=== PATIENT | male | born 1935 | race Caucasian/White ===

== ENCOUNTER → 2020-08-22 | Outpatient (CLI) | payer MEDICARE ==
--- NOTE | 2020-08-22 12:46 | US ---
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 EXAM MEASUREMENTS: Liver Length: 15.9 cm Gallbladder Wall: 0.3 cm CBD: 0.3 cm Spleen: 10.0 cm Right Kidney: 9.9 x 5.3 x 5.2 cm Left Kidney: 9.5 x 4.6 x 5.5 cm Pancreas: Obscured by bowel gas Liver: Multiple hepatic cysts, largest measuring 2.9 x 1.9 x 2.3 cm. Mild intrahepatic biliary duct al dilatation. Gallbladder: Cholelithiasis. No gallbladder wall thickening or pericholecystic edema. [employer] reports negative sonographic Muñoz sign. CBD: Normal. Spleen: Normal. Right Kidney: Normal. Left Kidney: No hydronephrosis. Unilocular exophytic simple appearing cyst of the lower pole measuri ng 7.0 x 6.4 x 6.6 cm. Upper IVC: Normal. Abd Aorta: No abdominal aortic aneurysm. IMPRESSION: 1. Mild intrahepatic biliary ductal dilatation. No extrahepatic biliary ductal dilatation. Recommend follow-up with MRCP. 2. Cholelithiasis. No acute cholecystitis. 3. Simple unilocular left renal cyst measuring 7.0 cm.
== END | disposition home or self-care (01) ==
LOC: RADUSWWP 08:04
PROVIDERS: ATTEND Family Medicine
DX: K80.20 Calculus of gallbladder without cholecystitis without obstruction (principal); N28.1 Cyst of kidney, acquired; K83.8 Other specified diseases of biliary tract
CPT/HCPCS: 76700

== ENCOUNTER → 2020-09-17 | Outpatient (CLI) | payer MEDICARE ==
--- NOTE | 2020-09-17 19:09 | MR ---
EXAMINATION TYPE: MR MRCP DATE OF EXAM: 09/17/2020 COMPARISON: Ultrasound abdomen August 22, 2020. HISTORY: Ductal dilation, abnormal ultrasound. Standard multiplanar, multisequence MRI departmental protocol Multiplanar, multisequence images of the abdomen were acquired. 2-D and 3-D postprocessing performed on MRI scanner. FINDINGS: Liver/gallbladder/pancreas/biliary system: Liver is overall normal in size. Corresponding to CT there are thin-walled cysts of varying size and shape scattered throughout the liver. No significant signa l dropout. Gallbladder shows no intraluminal gallstones. No abnormal wall thickening or surrounding f luid is present. Pancreas shows mild generalized fat replaced atrophy. There is no concerning solid o r cystic mass. MRCP images show no pancreatic ductal dilatation. There is no suspicious intrahepatic or extrahepatic biliary dilatation Other: Lung bases are clear. The spleen and both adrenal glands are within normal limits. There is th in walled 8.0 x 7.2 x 7.5 cm exophytic cyst lower pole left kidney redemonstrated. Smaller subcentime ter thin-walled cyst medially upper pole left kidney coronal image 32 incidentally noted. No hydronep hrosis. No suspicious small large bowel dilatation. Occasional left-sided colonic diverticula. Slight dextroconvex scoliosis centered at L2 level in the lumbar spine with [id number] multilevel spu rring and disc space narrowing. IMPRESSION: No worrisome intrahepatic or extrahepatic biliary dilatation. Several scattered thin-walled cysts thr oughout the liver correlate with ultrasound. No concerning solid masses on noncontrast CT. No gallsto shannan or secondary evidence for acute cholecystitis.
== END | disposition home or self-care (01) ==
LOC: RADMRIMAIN 15:21
PROVIDERS: ATTEND Student in an Organized Health Care Education/Training Program
DX: K76.89 Other specified diseases of liver (principal)
CPT/HCPCS: 74181

== ENCOUNTER → 2021-03-15 | Outpatient (CLI) | payer MEDICARE ==
--- NOTE | 2021-03-15 09:55 | ECHOF ---
Referral Reason:R03.0 elevated blood, R01.1 murmur, R94.31 abn EKG MEASUREMENTS -------- HEIGHT: 172.7 cm WEIGHT: 86.2 kg BP: IVSd: 1.2 cm (0.6 - 1.1) LVIDd: 4.1 cm (3.9 - 5.3) LVPWd: 1.2 cm (0.6 - 1.1) IVSs: 1.6 cm LVIDs: 2.6 cm LVPWs: 1.6 cm LA Diam: 4.0 cm (2.7 - 3.8) LAESV Index (A-L): 29.34 ml/m Ao Diam: 2.9 cm (2.0 - 3.7) AV Cusp: 2.0 cm (1.5 - 2.6) LA Diam: 3.6 cm (2.7 - 3.8) MV EXCURSION: 14.924 mm (> 18.000) MV EF SLOPE: 67 mm/s (70 - 150) EPSS: 0.1 cm MV E Rolan: 0.41 m/s MV DecT: 328 ms MV A Rolan: 0.74 m/s MV E/A Ratio: 0.55 RAP: 5.00 mmHg RVSP: 28.21 mmHg FINDINGS -------- Sinus rhythm. This was a technically good study. LV size, wall thickness and systolic function are normal, with an EF greater than 55%. The left landry tricular size is normal. The right ventricle is normal in size. LA is midly dilated 29-33ml/m2. The right atrial size is normal. The aortic valve is trileaflet, and appears structurally normal. No aortic stenosis or regurgitation. Mild mitral regurgitation is present. Mild tricuspid regurgitation present. Right ventricular systolic pressure is normal at < 35 mmHg. The right ventricular systolic pressure, as measured by Doppler, is 28.21mmHg. Trace/mild (physiologic) pulmonic regurgitation. The aortic root size is normal. There is no pericardial effusion. CONCLUSIONS -------- 1. LV size, wall thickness and systolic function are normal, with an EF greater than 55%. 2. The left ventricular size is normal. 3. The right ventricle is normal in size. 4. LA is midly dilated 29-33ml/m2. 5. The right atrial size is normal. 6. The aortic valve is trileaflet, and appears structurally normal. No aortic stenosis or regurgitati on. 7. Mild mitral regurgitation is present. 8. Mild tricuspid regurgitation present. 9. The right ventricular systolic pressure, as measured by Doppler, is 28.21mmHg. 10. Trace/mild (physiologic) pulmonic regurgitation. 11. The aortic root size is normal. 12. There is no pericardial effusion. RENDERING EQUIPMENT TENDER: Vijaya Goff RDCS
== END | disposition home or self-care (01) ==
LOC: RADECHMAIN 08:06
PROVIDERS: ATTEND Family Medicine
DX: I08.8 Other rheumatic multiple valve diseases (principal)
CPT/HCPCS: 93306

== ENCOUNTER → 2021-08-05 | Outpatient (CLI) | payer MEDICARE ==
--- NOTE | 2021-08-06 08:41 | MR ---
EXAMINATION TYPE: MR brain wo con DATE OF EXAM: 08/05/2021 COMPARISON: CT brain February 13, 2015 HISTORY: Vision changes, dizziness. TECHNIQUE: Multiplanar, multisequence imaging of the brain and brainstem is performed without IV cont rast. FINDINGS: Diffusion weighted images demonstrate no evidence of a recent infarct or other diffusion abnormality. There is moderate diffuse ventricular and sulcal prominence. No significant white matter changes. Midline structures demonstrate normal morphology. The craniocervical junction appears within normal limits. Normal vascular flow voids are present. The visualized sinuses are clear and the globes are i ntact. No abnormal fluid signal bilateral mastoid air cells. IMPRESSION: Moderate diffuse cerebral atrophy. No acute findings are evident.
== END | disposition home or self-care (01) ==
LOC: RADMRIMAIN 19:01
PROVIDERS: ATTEND Family Medicine
DX: G31.9 Degenerative disease of nervous system, unspecified (principal)
CPT/HCPCS: 70551